=== PATIENT | male | born 1995 | race Two or more races ===

== ENCOUNTER 2019-10-17 11:07 | Emergency (ER) | payer SELFPAY ==
[~2019-10-17] VITALS: Ht 177.8 cm; Wt 100.0 kg
[2019-10-17] MEDS ORDERED: IBUPROFEN 600MG TABLET PO ONE (12:00)
== END 2019-10-17 13:11 | disposition home or self-care (01) ==
LOC: ER 11:07
DX: J06.9 Acute upper respiratory infection, unspecified (principal); B34.9 Viral infection, unspecified; M79.89 Other specified soft tissue disorders; R51 Headache
CPT/HCPCS: 99283